=== PATIENT | male | born 1980 | race Caucasian/White ===

== ENCOUNTER 2017-06-19 11:08 | Emergency (ER) | payer OTHER ==
[~2017-06-19] VITALS: Ht 172.7 cm; Wt 93.5 kg
[2017-06-19 11:10] VITALS: Ht 172.7 cm; Wt 93.5 kg
[2017-06-19] MEDS ORDERED: ASPI-391 PO (11:21)
[2017-06-19 11:38] VITALS: BP 146/88; PULSE 100; TEMP 37; O2SAT 98
[2017-06-19] MEDS ORDERED: PRED20TA PO (11:39)
--- NOTE | 2017-06-19 11:40 | EMERGENCY ROOM VISIT NOTE ---
History First contact with patient: 11:15 Chief Complaint: BACK PAIN Stated Complaint: LOWER BACK PAIN,LEG NUMBNESS,SHOOTIN PAINS DOWN LE History of Present Illness The patient is a 36 year old male who presents to the Emergency Room with complaints of low back pain. The patient states that he has chronic low back pain. He has been moving into a house and states that his pain has worsened over the past 2 days. The patient states that the pain radiates from his low back into both of his legs, right greater than left. He has tingling in his leg and foot at times. He states that he is unable to find a comfortable position. He denies abdominal pain, nausea/vomiting, urinary symptoms, numbness , weakness, bowel/bladder incontinence or saddle anesthesias. The patient states he has had chronic pain in the back for the past 2 years. He states that he has frequent flareups of his pain with increased activity. He has been to a chiropractor in the past which worsened his pain. He had an MRI 1.5 years ago and states that he was told he should have surgery, but he declined at that time. He sees his primary care provider for his back pain and states that he is going to try a steroid injection into the spine, but has not been set up for this yet. He has tried physical therapy in the past without relief. He states that stretching sometimes helps his back pain. He rates his discomfort a 9/10 and states it is a throbbing, sharp pain. He has taken Excedrin extra strength for the pain and states he has not taken anything stronger for his pain. Review of Systems A complete 10 point review of systems was reviewed with the patient with pertinent positives and negatives as per history of present illness. All else were negative. Past Medical/Surgical History Medical Problems: (1) Chronic back pain Social History Smoking Status: Never Smoker Alcohol Use: none Occupation Status: employed Current/Historical Medications Scheduled Jnsgbfx-Cfjhmrcxqzstg-Dqobhurx (Excedrin Extra Strength), 3 TABS PO UD Prednisone (Prednisone), 0 PO DAILY Physical Exam Vital Signs Date Time Temp Pulse Resp B/P (MAP) Pulse Ox O2 Delivery O2 Flow Rate FiO2 06/19/17 11:38 37.0 100 18 146/88 98 06/19/17 11:10 37.0 100 18 146/88 98 Room Air Physical Exam VITALS: Vitals are noted on the nurse's note and reviewed by myself. Vital signs stable. GENERAL: This is a 36-year-old male, in no acute distress, nondiaphoretic, well- developed well-nourished. SKIN: The skin was without rashes. HEART: Regular rate and rhythm without murmurs gallops or rubs. LUNGS: Clear to auscultation bilaterally without wheezes, rales or rhonchi. ABDOMEN: Positive bowel sounds x 4. Soft, nontender to palpation. MUSCULOSKELETAL: There is mild, vague tenderness to palpation of the lumbar region. Full range of motion of bilateral lower extremities. Strength 5/5 bilaterally. NEURO: Patient was alert and oriented to person place and time. Normal sensation of bilateral lower extremities. Patellar reflexes 2+ bilaterally. Medical Decision & Procedures Medical Decision Differential diagnosis includes cauda equina syndrome, cord compression, disc herniation, muscle spasm, lumbar strain, epidural abscess, malignancy, transverse myelitis, urinary tract infection, colitis, diverticulitis, kidney stone, among others. The patient was evaluated as above. He presents with an acute exacerbation of his chronic low back pain. His exam is unremarkable. There is nothing to suggest cauda equina syndrome or cord compression. I asked the patient directly multiple times if he took anything other than hzfd-zuo-wlknovu medications for his pain and he adamantly denied this. However, review of the PDMP revealed that the patient had received 3 different prescriptions for oral Dilaudid in the past 2 months, totaling 552 pills of 4 mg Dilaudid. It appears that the patient has received multiple prescriptions for narcotics in the past and has been on Suboxone as well. I confronted the patient regarding this and informed him that I would not provide him with any further narcotics. I did offer him treatment with a steroid taper, however the patient left prior to receiving his discharge papers. Medication Reconcilliation Current Medication List: was personally reviewed by me Blood Pressure Screening Patient's blood pressure: Elevated blood pressure Blood pressure disposition: Elevated BP felt to be situational Impression Primary Impression: Acute exacerbation of chronic low back pain Departure Information Dispostion Home / Self-Care Condition GOOD Prescriptions Prednisone (Prednisone) 20 Mg Tab 0 PO DAILY, #18 TAB 3 DAILY FOR 3 DAYS, THEN 2 DAILY FOR 3 DAYS, THEN 1 DAILY FOR 3 DAYS. Prov: Deepika Dunn ., JASON 06/19/17 Referrals No Doctor, Assigned (PCP) Patient Instructions My [facility] Additional Instructions You have been treated in the Emergency Department for Back Pain. Prednisone as prescribed. For pain control, you can use the following [id number]-wdqfhjv medicines (if >12 yo): - Regular strength (325mg/tab) Tylenol (acetaminophen) 2 tabs every 4-6 hours as needed. Do not exceed 12 tablets in a 24 hour period. Avoid taking more than 4 grams (4000 mg) of Tylenol per day. This includes any other sources of acetaminophen you may take on a regular basis. - Regular strength (200 mg/tab) Advil (ibuprofen) 1-2 tabs every 4-6 hours as needed. Do not exceed a dose of 3200 mg per day. If this is an acute injury, ice can be applied to the area of pain for the first 3 days to help decrease pain and inflammation. After the first 3 days, a heating pad can be used over the area for continued soothing relief. You should schedule a follow-up appointment in 2-3 days with your Primary Care Provider for further evaluation and treatment of your back pain. Return to the Emergency Department if your current symptoms worsen despite treatment course outlined above, or if you develop any of the following symptoms : intractable pain despite aforementioned treatment course, loss of control of your bowel or bladder, numbness or tingling in your groin, or development of a fever.
== END 2017-06-19 11:38 | disposition home or self-care (01) ==
LOC: C.EDB 11:10 → C.EDD 11:38
DX: M54.5 Low back pain (principal); G89.29 Other chronic pain; X50.9XXA Other and unspecified overexertion or strenuous movements or postures, initial encounter; Y93.E6 Activity, residential relocation